=== PATIENT | female | born 1970 | race Caucasian/White ===

== ENCOUNTER 2019-06-24 13:08 | Emergency (ER) | payer BC ==
[~2019-06-24] VITALS: Ht 162.6 cm; Wt 72.6 kg
[2019-06-24 15:19] VITALS: BP 141/85
== END 2019-06-24 15:19 | disposition home or self-care (01) ==
LOC: ER 13:08
DX: J33.8 Other polyp of sinus (principal); J32.0 Chronic maxillary sinusitis; E07.9 Disorder of thyroid, unspecified
CPT/HCPCS: 70450

== ENCOUNTER 2020-11-12 10:15 | Emergency (ER) | payer BC ==
[~2020-11-12] VITALS: Ht 162.6 cm; Wt 86.2 kg
[2020-11-12 10:36] LABS: Basophils # (auto) 0.1 10 ^3/uL (0-0.2); Basophils % (auto) 1.1 % (0.0-2.0); Eosinophils # (auto) 0.1 10 ^3/uL (0-0.8); Eosinophils % (auto) 1.3 % (0.0-7.0); Hematocrit 42.2 % (36.0-46.0); Hemoglobin 14.3 g/dL (12.2-16.2); Lymphocytes # (auto) 2.4 10 ^3/uL (0.4-5.4); Lymphocytes % (auto) 27.9 % (10.0-50.0); Mean Corpuscular Hemoglobin 32.2 pg (28.0-32.0); Mean Corpuscular Hgb Conc. 33.8 g/dL (32.0-36.0); Mean Corpuscular Volume 95.2 fL (80.0-100.0); Monocytes # (auto) 0.6 10 ^3/uL (0-1.3); Monocytes % (auto) 7.1 % (0.0-12.0); Neutrophils # (auto) 5.3 10 ^3/uL (1.6-8.6); Neutrophils % (auto) 62.6 % (37.0-80.0); Nucleated Red Blood Cells % 0.1 %; Platelet Count (auto) 331 10^3/uL (140-450); Red Blood Cells 4.44 10^6/uL (4.0-5.20); Red Cell Distribution Width 13.9 % (11.8-14.3); White Blood Cell 8.5 10^3/uL (4.4-10.8)
[2020-11-12 10:54] LABS: Albumin 3.7 g/dL (3.4-5.0); Anion Gap 11 (5-15); Blood Urea Nitrogen 20 mg/dL (7-18); Calcium 9.1 mg/dL (8.5-10.1); Carbon Dioxide 22 mmol/L (21-32); Chloride 105 mmol/L (98-107); Glucose 86 mg/dL (74-106); Potassium 3.5 mmol/L (3.5-5.1); Sodium 138 mmol/L (136-145)
[2020-11-12 11:01] LABS: Alanine Aminotransferase 30 U/L (13-56); Alkaline Phosphatase 79 U/L (45-117); Aspartate Aminotransferase 22 U/L (15-37); BUN/Creatinine Ratio 16.3; Bilirubin, Total 0.4 mg/dL (0.2-1.0); GFR African American 59 mL/min; GFR Non-African American 49 mL/min; Total Protein 7.1 g/dL (6.4-8.2)
[2020-11-12 11:54] LABS: Urine Bacteria NONE SEEN /hpf (None Seen); Urine Blood 1+ /uL (Negative); Urine Mucus FEW (None Seen); Urine Specific Gravity 1.014 (1.001-1.035); Urine WBC 1 /hpf (0 - 5)
[2020-11-12 12:00] VITALS: BP 141/83
== END 2020-11-12 12:49 | disposition home or self-care (01) ==
LOC: ER 10:15
DX: J20.9 Acute bronchitis, unspecified (principal); Z20.822 Contact with and (suspected) exposure to COVID-19
CPT/HCPCS: 36415; 71045; 80053; 81001; 83735; 84484; 85025; 87426; 93005